=== PATIENT | male | born 2005 | race Caucasian/White ===

== ENCOUNTER 2023-11-23 08:21 | Emergency (ER) | payer OTHER, SELFPAY ==
[2023-11-23 08:34] VITALS: BP 128/92; PULSE 88; RESP 14; TEMP 36.6; O2SAT 99; BMI 25.1
--- NOTE | 2023-11-23 08:36 | DI.RAD.S_ITS ---
PROCEDURE: XR HAND RT MIN 3V INDICATIONS: pain after playing volleyball, finger # 5 4 TECHNIQUE: 3 views of the hand(s) acquired. COMPARISON: None. FINDINGS: Bones: No fractures or dislocations. Carpal bones are normally aligned. No suspicious bony lesions. Soft tissues: No suspicious soft tissue calcifications. IMPRESSION: No acute fracture. No osseous lesion. If symptoms and/or clinical suspicion for pathology persist, further assessment with repeat, or advanced imaging (e.g., CT, MRI, or bone scan) may be helpful for further assessment. Dictated by: Lupe Lyman M.D. on 11/23/2023 at 9:47 Approved by: Lupe Lyman M.D. on 11/23/2023 at 9:50
--- NOTE | 2023-11-23 11:44 | ED_ITS ---
HPI - Extremity Injury (Upper) General Chief Complaint: Extremity Injury, Upper Stated Complaint: RT hand finger injury, pain, swelling Time Seen by Provider: 11/23/23 08:24 Source: patient Mode of arrival: Ambulatory History of Present Illness HPI narrative: 18-year-old male presents for evaluation of right pinky finger injury. Patient states he thinks he may have injured his finger while playing volleyball but does not remember a specific incident. It has been painful for about a week. He wanted to make an appointment at the [facility] but there were no available appointments and he was referred to the emergency department. Related Data Home Medications Medication Instructions Recorded Confirmed dextroamphetamine-amphetamine ER 1 cap PO QAM 11/23/23 11/23/23 10 mg 24hr capsule,extend release Allergies Allergy/AdvReac Type Severity Reaction Status Date / Time No Known Drug Allergies Allergy Verified 11/23/23 08:36 Review of Systems Review of Systems Narrative: Negative except as noted above Patient History Social History Smoking Status: Never smoker Smoking Status: Never smoker alcohol intake frequency: 0-2 drinks per day Substance Use Type: does not use Exam Initial Vital Signs Initial Vital Signs: Vital Signs Temperature 97.9 F 11/23/23 08:34 Pulse Rate 88 11/23/23 08:34 Respiratory Rate 14 11/23/23 08:34 Blood Pressure 128/92 H 11/23/23 08:34 Pulse Oximetry 99 11/23/23 08:34 Oxygen Delivery Method Room Air 11/23/23 08:34 Const: Awake, alert, no acute distress, nontoxic appearing MSK: Minimal swelling proximal interphalangeal joint, full range of motion, no deformity Skin: Warm, Dry, intact, no rashes Neuro: AO x3, CN II-XII grossly intact, moves all extremities Course Orders Ordered: ED Orders 11/23/23 08:36 XR hand RT min 3V Stat Vital Signs Vital signs: Vital Signs - 8 hr 11/23/23 08:34 Temperature 97.9 F Pulse Rate 88 Respiratory Rate 14 Blood Pressure 128/92 H Pulse Oximetry 99 Oxygen Delivery Method Room Air MDM - Extremity Injury (Upper) MDM Narrative Medical decision making narrative: Possible right little finger injury. Neurologically and vascularly intact. X- rays negative for acute traumatic pathology. Patient placed in angelica tape, recommended rice and no contact sports until finger improves. Note for work provided Discharge Plan Departure Patient Disposition: Home Clinical Impression: Finger sprain Instructions: DI for Finger Sprain, How to Angelica Tape Activity Restrictions/Additional Instructions: Take tylenol and ibuprofen as needed for pain Prescriptions: No Action dextroamphetamine-amphetamine 10 mg capsule,extended release 24hr 1 cap PO QAM Stand Alone Forms: Patient Portal/API, Work Release Note
[2023-11-23 12:37] VITALS: BP 120/77; PULSE 76; RESP 14; O2SAT 99
== END 2023-11-23 12:39 | disposition home or self-care (01) ==
PROVIDERS: Emergency Provider Emergency Medicine
DX: S63.616A Unspecified sprain of right little finger, initial encounter (principal); X58.XXXA Exposure to other specified factors, initial encounter; Y93.68 Activity, volleyball (beach) (court)
CPT/HCPCS: 73130; 99282; 99283